=== PATIENT | female | born 1945 | race Caucasian/White ===

== ENCOUNTER → 2018-05-21 15:03 | Outpatient (CLI) | payer OTHER, SELFPAY ==
--- NOTE | 2018-05-21 | DI.MG.S_ITS ---
BILATERAL DIGITAL SCREENING MAMMOGRAM 3D/2D WITH CAD: 05/21/2018 CLINICAL: Routine screening. Comparison is made to exams dated: 06/09/2016 mammogram, 05/21/2015 mammogram, and 01/11/2014 mammogram - [facility]. There are scattered fibroglandular elements in both breasts. Current study was also evaluated with a Computer Aided Detection (CAD) system. No significant masses, calcifications, or other findings are seen in either breast. There has been no significant interval change. IMPRESSION: NEGATIVE There is no mammographic evidence of malignancy. A 1 year screening mammogram is recommended. This exam was interpreted at Station ID: [id number]. NOTE: For mammograms, a report in lay terms will be sent to the patient. Approximately 15% of breast malignancies will not be visualized mammographically. In the management of a palpable breast mass, a negative mammogram must not discourage biopsy of a clinically suspicious lesion. Electronically Signed By: Doris gauthier/pankaj:05/21/2018 17:27:50 letter sent: Normal Exam ACR BI-RADS Category 1: Negative 3341F
== END ==
PROVIDERS: PCP Family Medicine; Visit Provider Family Medicine
DX: Z12.31 Encounter for screening mammogram for malignant neoplasm of breast (principal)
CPT/HCPCS: 77063; 77067

== ENCOUNTER → 2018-07-23 15:12 | Outpatient (CLI) | payer OTHER, SELFPAY ==
[2018-07-23 15:48] LABS: Add Manual Diff / Slide Review NO; Basophils Absolute Auto 0 /uL (0-100); Basophils Percent Auto 0.6 % (0-2); Eosinophils Absolute Auto 100 /uL (0-450); Eosinophils Percent Auto 1.3 % (2-4); Hematocrit 38.5 % (36-46); Hemoglobin 13.3 g/dL (12.0-16.0); Lymphocytes Absolute Auto 1800 /uL (1100-4500); Lymphocytes Percent Auto 34.2 % (25-40); Mean Corpuscular HGB Conc 34.4 % (30-36); Mean Corpuscular Hemoglobin 33.1 PG (26-34); Mean Corpuscular Volume 96.1 fL (80-100); Monocytes Absolute Auto 500 /uL (0-900); Monocytes Percent Auto 9.8 % (3-14); Neutrophils Absolute Auto 2800 /uL (1500-7000); Neutrophils Percent Auto 54.1 % (50-75); Platelet Count 195 X10^3/uL (150-400); Red Blood Cell Count 4.01 X10^6/uL (4.0-5.2); Red Cell Distribution Width 12.4 % (11.6-14.8); White Blood Cell Count 5.2 X10^3/uL (4.5-11.0)
[2018-07-23 17:36] LABS: Alanine Aminotransferase 30 IU/L (9-52); Albumin 4.1 g/dL (3.5-5.0); Albumin Globulin Ratio 1.4 (1.0-2.8); Alkaline Phosphatase 64 U/L (38-126); Aspartate Aminotransferase 21 IU/L (14-36); BUN Creatinine Ratio 16.7 (6-22); Bilirubin Total 0.6 mg/dL (0.2-1.3); Blood Urea Nitrogen 15 mg/dL (7-17); Calcium 9.2 mg/dL (8.4-10.2); Carbon Dioxide 25 mmol/L (22-32); Chloride 104 mmol/L (98-107); Cholesterol 162 mg/dL (140-199); Estimated Glomerular Filt Rate > 60.0 mL/min (>60); Globulin 2.9 g/dL (1.7-4.1); Glucose 105 mg/dL (80-110); HDL Cholesterol 67 mg/dL (40-60); HEMOLYSIS < 15 (0-50); LDL Cholesterol Calculated 75 mg/dL (<100); Potassium 4.1 mmol/L (3.4-5.1); Sodium 140 mmol/L (137-145); Triglycerides 99 mg/dL (35-150)
[2018-07-23 18:06] LABS: Thyroid Stimulating Hormone 3.96 uIU/mL (0.47-4.68)
== END ==
PROVIDERS: PCP Family Medicine; Visit Provider Family Medicine
DX: E03.9 Hypothyroidism, unspecified (principal); E78.5 Hyperlipidemia, unspecified; Z13.820 Encounter for screening for osteoporosis
CPT/HCPCS: 36415; 80053; 80061; 82306; 84443; 85025

== ENCOUNTER → 2018-08-23 14:47 | Outpatient (CLI) | payer OTHER, SELFPAY | PROVIDERS: PCP Family Medicine; Visit Provider Family Medicine | DX: E07.9 Disorder of thyroid, unspecified (principal); Z78.0 Asymptomatic menopausal state | CPT/HCPCS: 77080 ==

== ENCOUNTER → 2020-02-03 16:13 | Outpatient (CLI) | payer MEDICARE, SELFPAY ==
[2020-02-03 17:19] LABS: Add Manual Diff / Slide Review NO; Basophils Absolute Auto 0 /uL (0-100); Basophils Percent Auto 0.6 % (0-2); Eosinophils Absolute Auto 100 /uL (0-450); Eosinophils Percent Auto 1.2 % (2-4); Hematocrit 38.4 % (36-46); Hemoglobin 13.2 g/dL (12.0-16.0); Lymphocytes Absolute Auto 1300 /uL (1100-4500); Mean Corpuscular HGB Conc 34.5 % (30-36); Mean Corpuscular Hemoglobin 33.4 PG (26-34); Monocytes Absolute Auto 400 /uL (0-900); Monocytes Percent Auto 7.9 % (3-14); Neutrophils Absolute Auto 3100 /uL (1500-7000); Neutrophils Percent Auto 63.3 % (50-75); Platelet Count 181 X10^3/uL (150-400); Red Blood Cell Count 3.96 X10^6/uL (4.0-5.2); Red Cell Distribution Width 12.5 % (11.6-14.8); White Blood Cell Count 4.9 X10^3/uL (4.5-11.0)
[2020-02-03 17:45] LABS: Erythrocyte Sedimentation Rate 30 MM/HR (0-20)
[2020-02-03 18:08] LABS: Alanine Aminotransferase 16 IU/L (<35); Albumin 4.1 g/dL (3.5-5.0); Albumin Globulin Ratio 1.4 (1.0-2.8); Alkaline Phosphatase 60 U/L (38-126); Aspartate Aminotransferase 22 IU/L (14-36); BUN Creatinine Ratio 16.1 (6-22); Bilirubin Total 0.6 mg/dL (0.2-1.3); Blood Urea Nitrogen 15 mg/dL (7-17); C-Reactive Protein Quant 0.9 mg/dL (<1.0); Calcium 9.3 mg/dL (8.4-10.2); Carbon Dioxide 32 mmol/L (22-32); Chloride 102 mmol/L (98-107); Estimated Glomerular Filt Rate 58.9 mL/min (>60); Globulin 2.9 g/dL (1.7-4.1); Glucose 118 mg/dL (80-110); HEMOLYSIS < 15 (0-50); Potassium 4.6 mmol/L (3.4-5.1); Sodium 139 mmol/L (137-145)
[2020-02-03 18:34] LABS: TSH w/ Reflex to FT4 4.08 uIU/mL (0.47-4.68); Thyroid Stimulating Hormone 4.01 uIU/mL (0.47-4.68)
== END ==
PROVIDERS: PCP Family Medicine; Referring Provider Family Medicine; Visit Provider Family Medicine
DX: R21 Rash and other nonspecific skin eruption (principal)
CPT/HCPCS: 36415; 80053; 84443; 85025; 85651; 86140

== ENCOUNTER → 2020-04-18 15:07 | Outpatient (CLI) | payer MEDICARE, SELFPAY ==
[2020-04-18 16:53] LABS: Cholesterol 176 mg/dL (140-199); HDL Cholesterol 60 mg/dL (40-60); LDL Cholesterol Calculated 81 mg/dL (<100); Triglycerides 174 mg/dL (35-150)
== END ==
PROVIDERS: PCP Family Medicine; Referring Provider Family Medicine; Visit Provider Family Medicine
DX: E78.2 Mixed hyperlipidemia (principal)
CPT/HCPCS: 36415; 80061

== ENCOUNTER → 2020-05-15 15:18 | Outpatient (CLI) | payer MEDICARE, SELFPAY ==
--- NOTE | 2020-05-15 | DI.MG.S_ITS ---
BILATERAL DIGITAL SCREENING MAMMOGRAM 3D/2D WITH CAD: 05/15/2020 CLINICAL: Routine screening. Comparison is made to exams dated: 05/21/2018 mammogram, 06/09/2016 mammogram, and 05/21/2015 mammogram - [facility]. There are scattered fibroglandular elements in both breasts. Current study was also evaluated with a Computer Aided Detection (CAD) system. No significant masses, calcifications, or other findings are seen in either breast. There has been no significant interval change. IMPRESSION: NEGATIVE There is no mammographic evidence of malignancy. A 1 year screening mammogram is recommended. This exam was interpreted at Station ID: [id number]. NOTE: For mammograms, a report in lay terms will be sent to the patient. Approximately 15% of breast malignancies will not be visualized mammographically. In the management of a palpable breast mass, a negative mammogram must not discourage biopsy of a clinically suspicious lesion. Electronically Signed By: Felisha mayo/pankaj:05/15/2020 15:56:43 letter sent: Normal Exam ACR BI-RADS Category 1: Negative 3341F
== END ==
PROVIDERS: PCP Family Medicine; Referring Provider Family Medicine; Visit Provider Family Medicine
DX: Z12.31 Encounter for screening mammogram for malignant neoplasm of breast (principal)
CPT/HCPCS: 77063; 77067

== ENCOUNTER → 2021-03-28 14:37 | Outpatient (CLI) | payer MEDICARE, SELFPAY ==
[2021-03-28 15:44] LABS: Alanine Aminotransferase 20 IU/L (<35); Albumin 4.2 g/dL (3.5-5.0); Albumin Globulin Ratio 1.4 (1.0-2.8); Alkaline Phosphatase 60 U/L (38-126); Aspartate Aminotransferase 25 IU/L (14-36); BUN Creatinine Ratio 10.3 (6-22); Bilirubin Total 0.7 mg/dL (0.2-1.3); Blood Urea Nitrogen 9 mg/dL (7-17); Carbon Dioxide 32 mmol/L (22-32); Chloride 104 mmol/L (98-107); Cholesterol 192 mg/dL (140-199); Estimated Glomerular Filt Rate > 60.0 mL/min (>60); Globulin 3.1 g/dL (1.7-4.1); Glucose 103 mg/dL (80-110); HDL Cholesterol 66 mg/dL (40-60); HEMOLYSIS < 15 (0-50); LDL Cholesterol Calculated 94 mg/dL (<100); Potassium 4.3 mmol/L (3.4-5.1); Sodium 141 mmol/L (137-145); Total Protein 7.3 g/dL (6.3-8.2); Triglycerides 160 mg/dL (35-150)
[2021-03-28 17:01] LABS: Microalbumin Urine Random 1.2 mg/dL (0-1.6)
[2021-03-28 17:04] LABS: Microalbumi Creatinin Ratio Ur 7.5 ug/mg CR (<30)
[2021-03-28 17:34] LABS: TSH w/ Reflex to FT4 4.99 uIU/mL (0.47-4.68)
== END ==
PROVIDERS: Referring Provider Family Medicine; Visit Provider Family Medicine
DX: E03.9 Hypothyroidism, unspecified (principal); E78.2 Mixed hyperlipidemia
CPT/HCPCS: 36415; 80053; 80061; 82043; 82570; 84439; 84443

== ENCOUNTER → 2021-07-03 15:57 | Outpatient (CLI) | payer MEDICARE, SELFPAY ==
--- NOTE | 2021-07-03 16:01 | DI.MG.S_ITS ---
BILATERAL DIGITAL SCREENING MAMMOGRAM 3D/2D WITH CAD: 07/03/2021 CLINICAL: Routine screening. Comparison is made to exams dated: 05/15/2020 mammogram, 05/21/2018 mammogram, and 06/09/2016 mammogram - [facility]. There are scattered fibroglandular elements in both breasts. Current study was also evaluated with a Computer Aided Detection (CAD) system. No significant masses, calcifications, or other findings are seen in either breast. There has been no significant interval change. IMPRESSION: NEGATIVE There is no mammographic evidence of malignancy. A 1 year screening mammogram is recommended. This exam was interpreted at Station ID: [id number]. NOTE: For mammograms, a report in lay terms will be sent to the patient. Approximately 15% of breast malignancies will not be visualized mammographically. In the management of a palpable breast mass, a negative mammogram must not discourage biopsy of a clinically suspicious lesion. Electronically Signed By: Jorge Alberto Gonzalez M.D., jr/pankaj:07/04/2021 10:58:16 letter sent: Normal Exam ACR BI-RADS Category 1: Negative 3341F
== END ==
PROVIDERS: PCP Family Medicine; Referring Provider Family Medicine; Visit Provider Family Medicine
DX: Z12.31 Encounter for screening mammogram for malignant neoplasm of breast (principal)
CPT/HCPCS: 77063; 77067

== ENCOUNTER → 2021-12-04 16:12 | Outpatient (CLI) | payer MEDICARE, SELFPAY ==
[2021-12-04 18:01] LABS: Alanine Aminotransferase 17 IU/L (<35); Albumin Globulin Ratio 1.2 (1.0-2.8); Alkaline Phosphatase 58 U/L (38-126); Aspartate Aminotransferase 30 IU/L (14-36); BUN Creatinine Ratio 12.4 (6-22); Bilirubin Total 0.6 mg/dL (0.2-1.3); Blood Urea Nitrogen 12 mg/dL (7-17); Calcium 8.9 mg/dL (8.4-10.2); Carbon Dioxide 27 mmol/L (22-32); Chloride 104 mmol/L (98-107); Estimated Glomerular Filt Rate > 60 mL/min (>60); Globulin 3.4 g/dL (1.7-4.1); Glucose 106 mg/dL (80-110); HEMOLYSIS < 15 (0-50); Potassium 4.7 mmol/L (3.4-5.1); Sodium 141 mmol/L (137-145); Total Protein 7.4 g/dL (6.3-8.2)
[2021-12-04 18:06] LABS: Add Manual Diff / Slide Review NO; Basophils Absolute Auto 0 /uL (0-100); Basophils Percent Auto 0.5 % (0-2); Eosinophils Absolute Auto 100 /uL (0-450); Eosinophils Percent Auto 2.3 % (2-4); Hematocrit 36.1 % (36-46); Hemoglobin 12.4 g/dL (12.0-16.0); Lymphocytes Absolute Auto 800 /uL (1100-4500); Mean Corpuscular HGB Conc 34.4 % (30-36); Mean Corpuscular Hemoglobin 32.2 PG (26-34); Mean Corpuscular Volume 93.6 fL (80-100); Monocytes Absolute Auto 600 /uL (0-900); Monocytes Percent Auto 10.9 % (3-14); Neutrophils Absolute Auto 3900 /uL (1500-7000); Neutrophils Percent Auto 71.3 % (50-75); Platelet Count 238 X10^3/uL (150-400); Red Blood Cell Count 3.86 X10^6/uL (4.0-5.2); Red Cell Distribution Width 12.4 % (11.6-14.8); White Blood Cell Count 5.4 X10^3/uL (4.5-11.0)
[2021-12-04 18:08] LABS: NT-proBNP (BNP-Adult 18+) 201 pg/mL (<450)
[2021-12-04 19:00] LABS: TSH w/ Reflex to FT4 2.83 uIU/mL (0.47-4.68)
[2021-12-04 20:33] LABS: Bilirubin Urine UA NEGATIVE (NEGATIVE); Color Urine UA YELLOW; Glucose Urine UA NEGATIVE (Negative); Ketones Urine UA NEGATIVE (NEGATIVE); Leukocyte Esterase Urine UA 2+ (NEGATIVE); Nitrite Urine UA NEGATIVE (Negative); Occult Blood Urine UA TRACE-LYSED (Negative); Protein Urine UA NEGATIVE (Negative); Urobilinogen Urine UA 0.2 E.U./dL (0.2)
[2021-12-04 20:34] LABS: Appearance Urine UA Slightly Cloudy
[2021-12-04 20:43] LABS: RBC Urine 0-1/HPF (0-5/HPF); Squamous Epithelial Cell Urine 5-10 /HPF (0-5/HPF); WBC Urine 10-30/HPF (0-5/HPF)
[2021-12-04 20:44] LABS: Amorphous Sediment Urine 1+; Bacteria Urine Moderate (10-30); Culture Indicated Urine Specimen Cultured; Mucus Urine 1+ (Negative)
== END ==
PROVIDERS: PCP Family Medicine; Referring Provider Family Medicine; Visit Provider Family Medicine
DX: E03.9 Hypothyroidism, unspecified (principal); R06.00 Dyspnea, unspecified; E78.2 Mixed hyperlipidemia
CPT/HCPCS: 36415; 80053; 81001; 83880; 84443; 85025; 87077; 87086; 87186

== ENCOUNTER → 2021-12-10 14:43 | Outpatient (CLI) | payer MEDICARE, SELFPAY ==
--- NOTE | 2021-12-10 14:45 | DI.RAD.S_ITS ---
PROCEDURE: XR CHEST 2V INDICATIONS: dyspnea on exertion TECHNIQUE: 2 views of the chest were acquired. COMPARISON: None. FINDINGS: Surgical changes and devices: None. Lungs and pleura: Bilateral hazy opacity. No pleural effusions or pneumothorax. Mediastinum: Mediastinal contours are normal. Heart size is normal. Bones and chest wall: No suspicious bony abnormalities. Soft tissues appear unremarkable. IMPRESSION: Bilateral hazy opacity. This could represent pulmonary edema or infectious/inflammatory etiology. Dictated by: Jonnathan Pereyra M.D. on 12/10/2021 at 17:00 Approved by: Jonnathan Pereyra M.D. on 12/10/2021 at 17:02
== END ==
PROVIDERS: PCP Family Medicine; Referring Provider Family Medicine; Visit Provider Family Medicine
DX: E03.9 Hypothyroidism, unspecified (principal); E78.2 Mixed hyperlipidemia; R06.00 Dyspnea, unspecified
CPT/HCPCS: 71046

== ENCOUNTER → 2021-12-24 15:18 | Outpatient (CLI) | payer MEDICARE, SELFPAY ==
--- NOTE | 2021-12-24 15:20 | DI.RAD.S_ITS ---
PROCEDURE: XR CHEST 2V INDICATIONS: hazy opacity TECHNIQUE: 2 views of the chest were acquired. COMPARISON: [facility], , XR CHEST 2V, 12/10/2021, 14:56. FINDINGS: Surgical changes and devices: None. Lungs and pleura: Patchy areas of increased interstitial and airspace opacity in both lungs. No obvious lobar or regional predilection. No chanda consolidation. No visible pleural effusion or findings of pneumothorax. Mediastinum: Mediastinal contours are normal. Heart size is at the upper limits of normal. Bones and chest wall: No suspicious bony abnormalities. Soft tissues appear unremarkable. IMPRESSION: Hazy opacities in both lungs have not significantly changed from the prior study. This could reflect interstitial edema or another interstitial process including and idiopathic interstitial pneumonitis. If there is no additional clinical evidence to support a diagnosis of cardiogenic pulmonary edema (elevated BNP or low cardiac output), then high-resolution CT of the chest should be considered along with further pulmonology workup. Dictated by: Jorge Alberto Gonzalez M.D. on 12/24/2021 at 15:46 Approved by: Jorge Alberto Gonzalez M.D. on 12/24/2021 at 15:48
== END ==
PROVIDERS: PCP Family Medicine; Referring Provider Family Medicine; Visit Provider Family Medicine
DX: R06.00 Dyspnea, unspecified (principal); R91.8 Other nonspecific abnormal finding of lung field
CPT/HCPCS: 71046

== ENCOUNTER 2021-12-25 16:37 | Emergency (ER) | payer MEDICARE, SELFPAY ==
[2021-12-25 16:44] VITALS: BP 118/69; PULSE 98; RESP 20; TEMP 36.4; O2SAT 95; BMI 29.7
[2021-12-25 18:22] LABS: COVID19 -Nasal RAPID POSITIVE (Negative)
--- NOTE | 2021-12-25 18:28 | ED.SOB ---
HPI - SOB/Dyspnea <Kristin Coffey, [facility] - Last Filed: 12/25/21 19:11> General Chief Complaint: Shortness of Breath/Dyspnea Stated Complaint: SOB COVID+ LIGHT HEADED Time Seen by Provider: 12/25/21 17:21 Source: patient Mode of arrival: Ambulatory History of Present Illness HPI Narrative: This is a 76-year-old female who presents to the emergency department with her after Paxlovid treatment for COVID infection and reports that she still feels short of breath with exertion, and still has fatigue. Patient finished 5 day treatment of Paxlovid on 12/22/21 and she states that her cough and sore throat improved while she was on it. She brought her in for evaluation for his COVID illness today and she checked in as well for her ongoing symptoms. States that she has used Tylenol at night for fever or pain and this has helped her sleep. She denies any nausea vomiting, diarrhea, wheezing, chest pain, difficulty breathing, or other symptom. Related Data Home Medications Medication Instructions Recorded Confirmed ASPIRIN (Aspirin) 81 mg PO Q DAY ##0 08/07/11 05/10/21 Previous Rx's Medication Instructions Recorded calcium carbonate 600 mg calcium 600 mg PO BID #180 tabs 03/28/20 (1,500 mg) tablet (Calcium) multivitamin 1 tab PO DAILY #90 tabs 03/28/20 levothyroxine 112 mcg tablet 112 mcg PO DAILY #90 tabs 03/21/21 lovastatin 40 mg tablet See Rx Instructions .Route 08/22/21 .COMPLEX #180 tabs nirmatrelvir 300 mg (150 mg x See Rx Instructions PO .COMPLEX 12/17/21 2)-ritonavir 100 mg tablet (EUA) #30 tabs (Paxlovid 300 mg () benzocaine 15 mg-menthol 3.6 mg 1 nicolás mucous membrane Q2-4H PRN 12/25/21 lozenges (Cepacol Sore Throat sore throat #16 ea (benzocaine-menthol)) guaifenesin 200 mg/5 mL oral liquid 400 mg (10 mL) PO Q6H PRN cough 12/25/21 #118 mL Allergies Allergy/AdvReac Type Severity Reaction Status Date / Time prednisone Allergy Intermediate rash, ring Verified 05/10/21 15:29 around ankles Review of Systems <KAROL Patel - Last Filed: 12/25/21 19:11> Review of Systems Narrative: General: denies fever, chills, malaise, sweats, endorses having fatigue Head/Neck: denies headache, neck pain, dizziness Eyes: denies visual changes, eye pain Cardio: denies chest pain, palpitations, edema Respiratory: Endorses shortness of breath with exertion, states that her cough and sore throat have improved and are mostly gone, denies orthopnea GI: denies abdominal pain, nausea, vomiting, or diarrhea : denies dysuria, hematuria, urinary retention, frequency or incontinence MSK: denies joint pain, muscle weakness Skin: denies rash, itching, skin lesions or other Neuro: denies numbness, tingling Patient History <KAROL Patel - Last Filed: 12/25/21 19:11> Medical History Dyspnea on exertion Social History Smoking Status: Never smoker alcohol intake: current (2 glasses wine per week ) substance use type: does not use Smoking Status: Never smoker Substance Use Type: does not use Exam <KAROL Patel - Last Filed: 12/25/21 19:11> Narrative Exam Narrative: Independently reviewed vitals signs and nursing notes. General: cooperative, comfortable, in no acute distress, well groomed Head: atraumatic, symmetrical facial expressions Neck: supple Eyes: equal round and reactive, EOMI, conjunctiva normal Nose: nares patent, no rhinorrhea Mouth/Throat: moist mucus membranes Cardiovascular: regular rate and rhythm, no peripheral edema, warm extremities Respiratory: normal effort, able to speak in complete sentences, no audible wheezing, stridor, or rales. No retractions or tachypnea. GI: abdomen soft, nontender to palpation, nondistended, no masses, no exquisite tenderness with exam, without guarding or rebound. MSK: moves all extremities, neurovascularly intact, no weakness, normal tone Skin: brisk capillary refill, no rash, no erythema Neuro: normal speech and cognition, A&O x3 Psych: mental status is grossly normal, congruent mood, normal affect, pleasant and cooperative Initial Vital Signs Initial Vital Signs: Vital Signs Temperature 97.5 F L 12/25/21 16:44 Pulse Rate 98 H 12/25/21 16:44 Respiratory Rate 20 12/25/21 16:44 Blood Pressure 118/69 12/25/21 16:44 Pulse Oximetry 95 12/25/21 16:44 Oxygen Delivery Method 12/25/21 16:44 <Noam Rodriguez DO - Last Filed: 12/25/21 19:48> Initial Vital Signs Initial Vital Signs: Vital Signs Temperature 97.5 F L 12/25/21 16:44 Pulse Rate 98 H 12/25/21 16:44 Respiratory Rate 20 12/25/21 16:44 Blood Pressure 118/69 12/25/21 16:44 Pulse Oximetry 95 12/25/21 16:44 Oxygen Delivery Method 12/25/21 16:44 Course <KAROL Patel - Last Filed: 12/25/21 19:11> Orders Ordered: ED Orders 12/25/21 18:09 COVID19 -Nasal RAPID/Pre-Proc Stat Vital Signs Vital signs: Vital Signs - 8 hr 12/25/21 16:44 12/25/21 19:15 Temperature 97.5 F L Pulse Rate 98 H 81 Respiratory Rate 20 22 Blood Pressure 118/69 Pulse Oximetry 95 97 Oxygen Delivery Method Room Air Room Air <Noam Rodriguez DO - Last Filed: 12/25/21 19:48> Orders Ordered: ED Orders 12/25/21 18:09 COVID19 -Nasal RAPID/Pre-Proc Stat Vital Signs Vital signs: Vital Signs - 8 hr 12/25/21 16:44 12/25/21 19:15 Temperature 97.5 F L Pulse Rate 98 H 81 Respiratory Rate 20 22 Blood Pressure 118/69 Pulse Oximetry 95 97 Oxygen Delivery Method Room Air Room Air MDM - SOB/Dyspnea <KAROL Patel - Last Filed: 12/25/21 19:11> Lab Data Labs: Lab Results 12/25/21 Range/Units 18:09 SARS-CoV-2 (PCR) Positive H (Negative) Imaging Data Chest x-ray: Radiologist's Impression: PROCEDURE:? XR CHEST 2V ? INDICATIONS:? hazy opacity ? TECHNIQUE:? 2 views of the chest were acquired.? ? COMPARISON:? [facility], CR, XR CHEST 2V, 12/10/2021, 14:56. ? FINDINGS:? ? Surgical changes and devices:? None.? ? Lungs and pleura: ? Patchy areas of increased interstitial and airspace opacity in both lungs.? No obvious lobar or regional predilection.? No chanda consolidation.? No visible pleural effusion or findings of pneumothorax. ? Mediastinum:? Mediastinal contours are normal.? Heart size is at the upper limits of normal. ? Bones and chest wall:? No suspicious bony abnormalities.? Soft tissues appear unremarkable.? ? IMPRESSION:? Hazy opacities in both lungs have not significantly changed from the prior study.? This could reflect interstitial edema or another interstitial process including and idiopathic interstitial pneumonitis.? If there is no additional clinical evidence to support a diagnosis of cardiogenic pulmonary edema (elevated BNP or low cardiac output), then high-resolution CT of the chest should be considered along with further pulmonology workup.? ? Dictated by: Jorge Alberto Gonzalez M.D. on 12/24/2021 at 15:46 ? ? Approved by: Jorge Alberto Gonzalez M.D. on 12/24/2021 at 15:48 ? MDM Narrative Medical decision making narrative: This is a 76-year-old female who is COVID positive and on day seven of her symptoms who presents to the emergency department status post Paxlovid treatment for covid complaining of fatigue and ongoing shortness of breath with exertion. She finished treatment on 12/22/2021, her COVID PCR is positive today for COVID, x-ray of her chest obtained yesterday shows hazy opacities in bilateral lungs but were unchanged from prior study. Patient is nontoxic appearing, breath sounds are clear throughout all padron, she does not have tachypnea, hypoxia, a productive cough, fever, increased work of breathing or other concerning respiratory symptom at this time. She does not have any respiratory distress, dehydration, or focal exam to suggest secondary bacterial infection. Discussed CDC guidelines for quarantine, mask wearing, physical distancing, and infection prevention measures such as frequent handwashing. Discussed supportive treatments: Tylenol/Motrin as needed for pain/fever. OTC decongestant medications and/or antihistamines for symptomatic relief. Maintain adequate fluid intake. Follow-up with PCP as directed. Return to clinic/ER instructions discussed for new, not improving, or worsening symptoms. All questions answered. <Noam Rodriguez, DO - Last Filed: 12/25/21 19:48> Lab Data Labs: Lab Results 12/25/21 Range/Units 18:09 SARS-CoV-2 (PCR) Positive H (Negative) Discharge Plan Departure Patient Disposition: Home Clinical Impression: COVID-19 Instructions: DI for COVID-19 (Suspected or Confirmed ), How to Care for Someone with COVID-19 Activity Restrictions/Additional Instructions: *You have been diagnosed with COVID-19. This is likely the tail end of your virus since you have completed treatment. Treatment should reduce the course and reduce the severity of your symptoms. Because it is still positive today, please continue to treat your symptoms. Take Tylenol for pain or fever, use throat lozenges for sore throat and coughing, and try to stay hydrated. I am sorry for your symptoms, this should start to get better soon. Please practice good pulmonary hygiene by taking deep breaths frequently throughout day, clearing your secretions, resting when you need to, and quarantine in from other nonstick people. Please return to the emergency department if you have any worsening shortness of breath, or other new problems of concern. *What to do: *Please continue to take your regular medications as directed. [x ] New medication prescriptions sent to your pharmacy: [[facility] ] [ ] New medication written as a paper prescription [ ] No new medications given *Please follow up with your primary care provider in 2-3 days, call for an appointment. Let them know you were seen in the Emergency Department and that we asked that you be seen for follow-up. We will electronically transmit a record of today's note if your PCP is in our system *If you do not have a primary care provider please contact [phone] to establish care with one of the [facility] primary care providers. *Return to Emergency Department if you should have any new, worsening or concerning symptoms, such as [fever greater than 101F, chills, worsening pain, persistent vomiting or other bothersome symptoms] Prescriptions: New Cepacol Sore Throat (raghavendra-men) 15-3.6 mg lozenge 1 nicolás mucous membrane Q2-4H PRN (Reason: sore throat) Qty: 16 0RF guaifenesin 200 mg/5 mL liquid 400 mg PO Q6H PRN (Reason: cough) Qty: 118 0RF No Action ASPIRIN (Aspirin) 81 mg PO Q DAY Qty: 0 lovastatin 40 mg tablet See Rx Instructions .ROUTE .COMPLEX Qty: 180 3RF Dose Instruction: TAKE 2 TABLETS BY MOUTH AT BEDTIME Rx Instructions: TAKE 2 TABLETS BY MOUTH AT BEDTIME Paxlovid (EUA) 150 mg x 2- 100 mg tablet See Rx Instructions PO .COMPLEX Qty: 30 0RF Rx Instructions: take TWO 150 mg tablets of nirmatrelvir with ONE 100 mg tablet of ritonavir twice daily for 5 days PO multivitamin Tablet 1 tab PO DAILY Qty: 90 0RF calcium carbonate [Calcium 600] 600 mg calcium (1,500 mg) tablet 600 mg PO BID Qty: 180 0RF levothyroxine 112 mcg tablet 112 mcg PO DAILY Qty: 90 3RF Referrals: Chang Holbrook MD [Primary Care Provider] - Visit Report Forms: Patient Portal/API <Noam Rodriguez, DO - Last Filed: 12/25/21 19:48> Cosign ED Attending Cosignature Attestation: Dr Rodriguez Co-Sign Statement: I was available for consultation during this patient's emergency department visit. This chart is signed by myself for administrative purposes only. I did not have direct contact with this patient during this visit. They were seen independently by the APC.
[2021-12-25 19:15] VITALS: PULSE 81; RESP 22; O2SAT 97
== END 2021-12-25 19:16 | disposition home or self-care (01) ==
PROVIDERS: Emergency Provider Nurse Practitioner Critical Care Medicine; PCP Family Medicine
DX: U07.1 COVID-19 (principal)
CPT/HCPCS: 87635; 99281; 99282; C9803

== ENCOUNTER → 2022-01-07 16:41 | Outpatient (CLI) | payer MEDICARE, SELFPAY ==
--- NOTE | 2022-01-07 16:45 | DI.RAD.S_ITS ---
PROCEDURE: XR FOOT RT MIN 3V INDICATIONS: R great toe pain, fall, injury TECHNIQUE: 3 views of the foot were acquired. COMPARISON: None. FINDINGS: Bones: Nondisplaced fracture involving the medial margin of the base of the 1st proximal phalange which extends into the MTP joint. Calcaneal bone spurs. Soft tissues: No tibiotalar joint effusion. Achilles tendon appears normal. IMPRESSION: Nondisplaced, intra-articular 1st proximal phalange fracture. Dictated by: June Rhodes MD, PhD on 01/07/2022 at 17:18 Approved by: June Rhodes MD, PhD on 01/07/2022 at 17:19
== END ==
PROVIDERS: PCP Family Medicine; Referring Provider Physician Assistant; Visit Provider Physician Assistant
DX: S92.414A Nondisplaced fracture of proximal phalanx of right great toe, initial encounter for closed fracture (principal); W19.XXXA Unspecified fall, initial encounter
CPT/HCPCS: 73630

== ENCOUNTER → 2022-06-19 14:22 | Outpatient (CLI) | payer MEDICARE, SELFPAY ==
[2022-06-19 15:51] LABS: Alanine Aminotransferase 20 IU/L (<35); Albumin 4.1 g/dL (3.5-5.0); Albumin Globulin Ratio 1.3 (1.0-2.8); Alkaline Phosphatase 62 U/L (38-126); Aspartate Aminotransferase 22 IU/L (14-36); BUN Creatinine Ratio 17.9 (6-22); Bilirubin Total 0.5 mg/dL (0.2-1.3); Blood Urea Nitrogen 19 mg/dL (7-17); Calcium 9.1 mg/dL (8.4-10.2); Carbon Dioxide 31 mmol/L (22-32); Chloride 100 mmol/L (98-107); Cholesterol 182 mg/dL (140-199); Estimated Glomerular Filt Rate 54 mL/min (>60); Globulin 3.2 g/dL (1.7-4.1); Glucose 100 mg/dL (80-110); HDL Cholesterol 60 mg/dL (40-60); HEMOLYSIS < 15 (0-50); LDL Cholesterol Calculated 102 mg/dL (<100); Potassium 4.1 mmol/L (3.4-5.1); Sodium 139 mmol/L (137-145); Total Protein 7.3 g/dL (6.3-8.2); Triglycerides 102 mg/dL (35-150)
[2022-06-19 16:32] LABS: Microalbumin Urine Random 2.9 mg/dL (0-1.6)
[2022-06-19 17:10] LABS: Creatinine Urine Random 386.7 mg/dL; Microalbumi Creatinin Ratio Ur 7.4 ug/mg CR (<30)
== END ==
PROVIDERS: PCP Family Medicine; Referring Provider Family Medicine; Visit Provider Family Medicine
DX: E78.2 Mixed hyperlipidemia (principal); E03.9 Hypothyroidism, unspecified; U07.1 COVID-19
CPT/HCPCS: 36415; 80053; 80061; 82043; 82570

== ENCOUNTER → 2022-06-26 16:46 | Outpatient (CLI) | payer MEDICARE, SELFPAY ==
[2022-06-26 18:37] LABS: Appearance Urine UA SL CLOUDY; Bilirubin Urine UA NEGATIVE (NEGATIVE); Color Urine UA YELLOW; Glucose Urine UA NEGATIVE (Negative); Ketones Urine UA NEGATIVE (NEGATIVE); Leukocyte Esterase Urine UA 2+ (NEGATIVE); Nitrite Urine UA NEGATIVE (Negative); Occult Blood Urine UA 1+ (Negative); Protein Urine UA TRACE (Negative); Specific Gravity Urine UA >=1.030 (1.000-1.035); Urobilinogen Urine UA 0.2 E.U./dL (0.2)
[2022-06-26 19:00] LABS: Amorphous Sediment Urine 1+; Bacteria Urine Moderate (10-30); Culture Indicated Urine Specimen Cultured; Mucus Urine 1+ (Negative); RBC Urine 1-5/HPF (0-5/HPF); Squamous Epithelial Cell Urine 10-30 /HPF (0-5/HPF); WBC Urine 10-30/HPF (0-5/HPF)
== END ==
PROVIDERS: PCP Family Medicine; Referring Provider Family Medicine; Visit Provider Family Medicine
DX: R30.0 Dysuria (principal)
CPT/HCPCS: 81001; 87077; 87086; 87147; 87186

== ENCOUNTER → 2022-09-10 15:45 | Outpatient (CLI) | payer MEDICARE, SELFPAY ==
--- NOTE | 2022-09-10 15:51 | DI.MG.S_ITS ---
BILATERAL DIGITAL SCREENING MAMMOGRAM 3D/2D WITH CAD: 09/10/2022 CLINICAL: Routine screening. Comparison is made to exams dated: 07/03/2021 mammogram, 05/15/2020 mammogram, and 05/21/2018 mammogram - [facility]. There are scattered areas of fibroglandular density in both breasts (category b / 25%-50% glandular tissue). Current study was also evaluated with a Computer Aided Detection (CAD) system. No significant masses, calcifications, or other findings are seen in either breast. There has been no significant interval change. IMPRESSION: NEGATIVE There is no mammographic evidence of malignancy. A 1 year screening mammogram is recommended. Based on the Tyrer Cuzick model (a risk assessment model) the patient's lifetime risk is 4.6% and her 10 year risk is 0.0%. According to the ACR, ACS, and NCCN guidelines, an annual breast MRI exam along with mammogram is recommended if the patient's lifetime risk is 20% or greater. This exam was interpreted at Station ID: [id number]. NOTE: For mammograms, a report in lay terms will be sent to the patient. Approximately 15% of breast malignancies will not be visualized mammographically. In the management of a palpable breast mass, a negative mammogram must not discourage biopsy of a clinically suspicious lesion. Electronically Signed By: Jorge Alberto Gonzalez M.D., jr/pankaj:09/11/2022 14:40:43 letter sent: Normal Exam ACR BI-RADS Category 1: Negative 3341F
== END ==
PROVIDERS: PCP Family Medicine; Referring Provider Family Medicine; Visit Provider Family Medicine
DX: Z12.31 Encounter for screening mammogram for malignant neoplasm of breast (principal)
CPT/HCPCS: 77063; 77067

== ENCOUNTER → 2022-10-15 13:36 | Outpatient (CLI) | payer MEDICARE, SELFPAY ==
--- NOTE | 2022-10-15 13:39 | DI.RAD.S_ITS ---
PROCEDURE: XR KNEE RT 3V INDICATIONS: bilateral knee pain TECHNIQUE: 3 views of the knee were acquired. COMPARISON: [facility], , KNEE 3V RIGHT, 11/29/2012, 16:18. FINDINGS: Bones: No fractures or dislocations. No suspicious bony lesions. Progressive degenerative arthritis of the right knee. There are tricompartment osteophytes. There is progression of lateral compartment degenerative change with moderate to severe lateral compartment joint space loss. Soft tissues: No joint effusion. No suspicious soft tissue calcifications. IMPRESSION: Interval progression of degenerative arthritis of the right knee. Dictated by: Vignesh Cantrell M.D. on 10/15/2022 at 15:16 Approved by: Vignesh Cantrell M.D. on 10/15/2022 at 15:17
--- NOTE | 2022-10-15 13:39 | DI.RAD.S_ITS ---
PROCEDURE: XR KNEE LT 3V INDICATIONS: bilateral knee pain TECHNIQUE: 3 views of the knee were acquired. COMPARISON: [facility], , KNEE 3V RIGHT, 11/29/2012, 16:18. FINDINGS: Bones: No fractures or dislocations. No suspicious bony lesions. Mild interval progression of degenerative arthritis with more prominent medial compartment osteophytes. Soft tissues: No joint effusion. No suspicious soft tissue calcifications. IMPRESSION: Mild interval progression of degenerative arthritis of the left knee. Dictated by: Vignesh Cantrell M.D. on 10/15/2022 at 15:15 Approved by: Vignesh Cantrell M.D. on 10/15/2022 at 15:16
== END ==
PROVIDERS: PCP Family Medicine; Referring Provider Family Medicine; Visit Provider Family Medicine
DX: M17.0 Bilateral primary osteoarthritis of knee (principal); M25.561 Pain in right knee; M25.562 Pain in left knee
CPT/HCPCS: 73562

== ENCOUNTER → 2023-03-12 15:29 | Outpatient (CLI) | payer MEDICARE, SELFPAY ==
[2023-03-12 16:58] LABS: Add Manual Diff / Slide Review NO; Basophils Absolute Auto 0 /uL (0-100); Basophils Percent Auto 0.5 % (0-2); Eosinophils Absolute Auto 100 /uL (0-450); Eosinophils Percent Auto 1.1 % (2-4); Hematocrit 37.7 % (36-46); Lymphocytes Absolute Auto 1400 /uL (1100-4500); Lymphocytes Percent Auto 23.9 % (25-40); Mean Corpuscular HGB Conc 34.4 % (30-36); Mean Corpuscular Hemoglobin 32.9 PG (26-34); Mean Corpuscular Volume 95.8 fL (80-100); Monocytes Absolute Auto 500 /uL (0-900); Monocytes Percent Auto 8.5 % (3-14); Neutrophils Absolute Auto 4000 /uL (1500-7000); Platelet Count 190 X10^3/uL (150-400); Red Blood Cell Count 3.94 X10^6/uL (4.0-5.2); Red Cell Distribution Width 13.2 % (11.6-14.8)
[2023-03-12 17:23] LABS: Alanine Aminotransferase 23 IU/L (<35); Albumin 4.1 g/dL (3.5-5.0); Albumin Globulin Ratio 1.1 (1.0-2.8); Alkaline Phosphatase 56 U/L (38-126); Aspartate Aminotransferase 29 IU/L (14-36); BUN Creatinine Ratio 12.9 (6-22); Bilirubin Total 0.6 mg/dL (0.2-1.3); Blood Urea Nitrogen 12 mg/dL (7-17); Calcium 8.9 mg/dL (8.4-10.2); Carbon Dioxide 27 mmol/L (22-32); Chloride 102 mmol/L (98-107); Estimated Glomerular Filt Rate > 60 mL/min (>60); Globulin 3.6 g/dL (1.7-4.1); Glucose 105 mg/dL (80-110); HEMOLYSIS 20 (0-50); Potassium 4.2 mmol/L (3.4-5.1); Sodium 138 mmol/L (137-145); Total Protein 7.7 g/dL (6.3-8.2)
[2023-03-12 17:51] LABS: TSH w/ Reflex to FT4 4.76 uIU/mL (0.47-4.68)
[2023-03-12 23:36] LABS: Free T4, Direct Thyroxine 1.24 ng/dL (0.78-2.19)
== END ==
PROVIDERS: PCP Family Medicine; Referring Provider Family Medicine; Visit Provider Family Medicine
DX: E03.9 Hypothyroidism, unspecified (principal); E78.2 Mixed hyperlipidemia; M25.561 Pain in right knee; M25.562 Pain in left knee
CPT/HCPCS: 36415; 80053; 84439; 84443; 85025

== ENCOUNTER → 2023-10-05 15:39 | Outpatient (CLI) | payer MEDICARE, SELFPAY ==
--- NOTE | 2023-10-05 | DI.MG.S_ITS ---
BILATERAL DIGITAL SCREENING MAMMOGRAM 3D/2D WITH CAD: 10/05/2023 CLINICAL: Routine screening. Comparison is made to exams dated: 09/10/2022 mammogram, 07/03/2021 mammogram, and 05/15/2020 mammogram - [facility]. There are scattered areas of fibroglandular density in both breasts (category b / 25%-50% glandular tissue). Current study was also evaluated with a Computer Aided Detection (CAD) system. No significant masses, calcifications, or other findings are seen in either breast. There has been no significant interval change. IMPRESSION: NEGATIVE There is no mammographic evidence of malignancy. A 1 year screening mammogram is recommended. Based on the Tyrer Cuzick model (a risk assessment model) the patient's lifetime risk is 4.1% and her 10 year risk is 0.0%. According to the ACR, ACS, and NCCN guidelines, an annual breast MRI exam along with mammogram is recommended if the patient's lifetime risk is 20% or greater. This exam was interpreted at Station ID: [id number]. NOTE: For mammograms, a report in lay terms will be sent to the patient. Approximately 15% of breast malignancies will not be visualized mammographically. In the management of a palpable breast mass, a negative mammogram must not discourage biopsy of a clinically suspicious lesion. Electronically Signed By: Brien van/pankaj:10/06/2023 17:28:08 letter sent: Normal Exam ACR BI-RADS Category 1: Negative 3341F
== END ==
PROVIDERS: PCP Family Medicine; Referring Provider Family Medicine; Visit Provider Family Medicine
DX: Z12.31 Encounter for screening mammogram for malignant neoplasm of breast (principal); R92.323 Mammographic fibroglandular density, bilateral breasts
CPT/HCPCS: 77063; 77067

== ENCOUNTER → 2024-07-20 13:43 | Outpatient (CLI) | payer MEDICARE, SELFPAY | PROVIDERS: PCP Family Medicine; Referring Provider Family Medicine; Visit Provider Family Medicine | DX: R00.2 Palpitations (principal) | CPT/HCPCS: 93242; 93244 ==

== ENCOUNTER 2024-07-25 18:35 | Emergency (ER) | payer MEDICARE, SELFPAY ==
[2024-07-25] VITALS (14 sets, daily range): BP systolic 123–181; BP diastolic 60–97; PULSE 66–93; RESP 15–23; TEMP 36.6; O2SAT 94–98; BMI 30.4
--- NOTE | 2024-07-25 18:43 | DI.RAD.S_ITS ---
PROCEDURE: XR CHEST 1V INDICATIONS: Chest pain TECHNIQUE: One view of the chest was acquired. COMPARISON: [facility], , XR CHEST 2V, 12/24/2021, 15:24. FINDINGS: Surgical changes and devices: Battery like device projects over the left lateral chest. Lungs and pleura: Mild diffuse thickening of the interstitial markings. No focal consolidation, effusion, or pneumothorax. Mediastinum: Mild cardiomegaly. Normal aortic contour. No central venous congestion. Bones and chest wall: No suspicious bony lesions. Overlying soft tissues appear unremarkable. IMPRESSION: Diffuse interstitial thickening may indicate chronic pulmonary edema or interstitial pneumonitis. Mild cardiomegaly, slightly increased compared to the prior exam. Dictated by: Felisha Palacios M.D. on 07/25/2024 at 19:54 Approved by: Felisha Palacios M.D. on 07/25/2024 at 19:55
--- NOTE | 2024-07-25 18:43 | EKG_ITS ---
[facility] [address] [place] [address] Test Date: 2024-07-25 Pat Name: Alicia Parsons Department: [facility] Room: Gender: Female Headline Writer: : 1945 Requested By: Order Number: [id number] Reading MD: Dwayne Liu MD Measurements Intervals [place] Rate: 74 P: 72 SD: 130 QRS: 63 QRSD: 88 T: 63 QT: 394 QTc: 437 Interpretive Statements Normal sinus rhythm Low voltage QRS Nonspecific ST abnormality Electronically Signed On 07-26-2024 6:43:12 PST by Dwayne Liu MD
[2024-07-25 19:47] LABS: Add Manual Diff / Slide Review NO; Basophils Absolute Auto 0 /uL (0-100); Basophils Percent Auto 0.5 % (0-2); Eosinophils Absolute Auto 100 /uL (0-450); Eosinophils Percent Auto 0.8 % (2-4); Hematocrit 38.5 % (36-46); Hemoglobin 12.8 g/dL (12.0-16.0); Lymphocytes Absolute Auto 1300 /uL (1100-4500); Lymphocytes Percent Auto 19.5 % (25-40); Mean Corpuscular HGB Conc 33.3 % (30-36); Mean Corpuscular Hemoglobin 32.1 PG (26-34); Mean Corpuscular Volume 96.3 fL (80-100); Monocytes Absolute Auto 500 /uL (0-900); Monocytes Percent Auto 7.8 % (3-14); Neutrophils Absolute Auto 4600 /uL (1500-7000); Neutrophils Percent Auto 71.4 % (50-75); Platelet Count 203 X10^3/uL (150-400); Red Blood Cell Count 3.99 X10^6/uL (4.0-5.2); Red Cell Distribution Width 13.2 % (11.6-14.8); White Blood Cell Count 6.5 X10^3/uL (4.5-11.0)
--- NOTE | 2024-07-25 19:47 | PC.NURSE ---
Pt endorses she was placed on a heart monitor on 07/20/24 as her primary physician heard something funny in my heart, so he wanted me to wear this heart monitor. Pt denies any cardiac diagnoses.
[2024-07-25 20:00] LABS: Alanine Aminotransferase 22 IU/L (<35); Albumin 4.2 g/dL (3.5-5.0); Albumin Globulin Ratio 1.3 (1.0-2.8); Alkaline Phosphatase 60 U/L (38-126); Aspartate Aminotransferase 28 IU/L (14-36); BUN Creatinine Ratio 18.2 (6-22); Bilirubin Total 0.5 mg/dL (0.2-1.3); Blood Urea Nitrogen 18 mg/dL (7-17); Calcium 9.8 mg/dL (8.4-10.2); Carbon Dioxide 30 mmol/L (22-32); Chloride 103 mmol/L (98-107); Creatine Kinase 51 U/L (30-135); Estimated Glomerular Filt Rate 58 mL/min (>60); Globulin 3.3 g/dL (1.7-4.1); Glucose 109 mg/dL (80-110); HEMOLYSIS < 15 (0-50); Lipase 78 U/L (23-300); Magnesium 1.9 mg/dL (1.6-2.3); Potassium 4.5 mmol/L (3.4-5.1); Sodium 136 mmol/L (137-145); Total Protein 7.5 g/dL (6.3-8.2)
[2024-07-25 20:11] LABS: Troponin I < 0.012 ng/mL (0.01-0.034)
--- NOTE | 2024-07-25 21:06 | ED.ARRPALP ---
HPI - Arrhythmia/Palpitations General Chief Complaint: Arrhythmia/Palpitations Stated Complaint: left arm heaviness, worse w activity Time Seen by Provider: 07/25/24 18:42 Source: patient Mode of arrival: Wheelchair History of Present Illness HPI narrative: Patient was a 79-year-old female who is here for evaluation of was initially described as left arm heaviness. She describes it as a ?pulsing? and tingling sensation to her left. She states that it happens occasionally. Is unsure as to how long it lasts when it does occur. No skin changes. No upper arm pain. No chest pain. No neck pain. No shortness of breath. Reports no activities which would potentially have caused muscle soreness. No trauma to the area. She was wearing a ZIO patch prescribed by her primary provider. Related Data Home Medications Medication Instructions Recorded Confirmed ASPIRIN (Aspirin) 81 mg PO Q DAY ##0 08/07/11 07/11/24 ferrous sulfate 325 mg (65 mg 325 mg PO DAILY 03/31/22 07/11/24 iron) tablet Previous Rx's Medication Instructions Recorded calcium carbonate (Calcium 600) 600 mg PO BID #180 tabs 03/28/20 multivitamin 1 tab PO DAILY #90 tabs 03/28/20 levothyroxine 112 mcg tablet 112 mcg PO DAILY #90 tabs 07/11/24 lovastatin 40 mg tablet See Rx Instructions .Route 07/11/24 .COMPLEX #180 tabs Allergies Allergy/AdvReac Type Severity Reaction Status Date / Time prednisone Allergy Intermediate rash, ring Verified 07/25/24 19:04 around ankles Review of Systems Review of Systems ROS Unobtainable: All systems reviewed & are unremarkable except as noted in HPI and below Patient History Medical History Dyspnea on exertion Social History Smoking Status: Never smoker alcohol intake: current (2 glasses wine per week ) substance use type: does not use Smoking Status: Never smoker Exam Initial Vital Signs Initial Vital Signs: Vital Signs Temperature 97.8 F 07/25/24 18:38 Pulse Rate 93 H 07/25/24 18:38 Respiratory Rate 16 07/25/24 18:38 Blood Pressure 157/73 H 07/25/24 18:38 Pulse Oximetry 95 07/25/24 18:38 Oxygen Delivery Method Room Air 07/25/24 18:38 Const General: cooperative, comfortable and No ill appearing HENMT Head: normal to inspection and normocephalic Resp Effort & Inspection: normal respiratory effort Auscultation: clear to auscultation bilaterally Cardio Rate: regular rate Rhythm: regular rhythm Pulses: radial pulses present on the left GI Inspection: normal to inspection and non-distended Palpation: soft and No tender Back/Spine/Pelvis Cervical Spine: No cervical muscular tenderness and No cervical spinal tenderness Skin General: no rashes or lesions noted Neuro Sensory Exam: no sensory deficits noted Extrem General: normal to inspection and No capillary refill normal Other: Left wrist is unremarkable. Left elbows unremarkable. Left shoulder is unremarkable. She describes the pain on the radial aspect of the left proximal forearm. Course Orders Ordered: ED Orders 07/25/24 18:43 XR chest 1V Stat EKG-12 Lead Stat 07/25/24 19:39 Complete Blood Count AUTO DIFF Stat Comprehensive Metabolic Panel Stat Lipase Stat Magnesium Stat Troponin & CK Cardiac Panel Stat Vital Signs Vital signs: Vital Signs - 8 hr 07/25/24 18:38 07/25/24 18:48 07/25/24 18:49 Temperature 97.8 F Pulse Rate 93 H 86 88 Respiratory Rate 16 Blood Pressure 157/73 H Pulse Oximetry 95 95 94 Oxygen Delivery Method Room Air 07/25/24 18:49 07/25/24 19:00 07/25/24 19:00 Temperature Pulse Rate 74 Respiratory Rate Blood Pressure 141/84 H 153/97 H Pulse Oximetry 95 Oxygen Delivery Method 07/25/24 19:30 07/25/24 19:31 07/25/24 19:31 Temperature Pulse Rate 74 77 Respiratory Rate 19 Blood Pressure 123/89 Pulse Oximetry 95 95 Oxygen Delivery Method Room Air 07/25/24 20:00 07/25/24 20:01 07/25/24 20:01 Temperature Pulse Rate 67 67 Respiratory Rate 19 18 Blood Pressure 181/77 H Pulse Oximetry 96 97 Oxygen Delivery Method Room Air 07/25/24 20:30 07/25/24 20:31 07/25/24 20:31 Temperature Pulse Rate 68 70 Respiratory Rate 19 20 Blood Pressure 175/72 H Pulse Oximetry 98 97 Oxygen Delivery Method Room Air 07/25/24 20:44 07/25/24 20:44 07/25/24 21:00 Temperature Pulse Rate 72 76 Respiratory Rate 15 23 Blood Pressure 156/60 H Pulse Oximetry 96 97 Oxygen Delivery Method Room Air Room Air 07/25/24 21:30 07/25/24 21:37 07/25/24 21:37 Temperature Pulse Rate 66 69 Respiratory Rate 18 20 Blood Pressure 162/64 H Pulse Oximetry 96 98 Oxygen Delivery Method Room Air Room Air MDM - Arrhythmia/Palpitations Lab Data Attestation: I reviewed the patient's lab results. 07/25/24 19:39 07/25/24 19:39 Labs: Lab Results 07/25/24 Range/Units 19:39 WBC 6.5 (4.5-11.0) X10^3/uL RBC 3.99 L (4.0-5.2) X10^6/uL Hgb 12.8 (12.0-16.0) g/dL Hct 38.5 (36-46) % MCV 96.3 (80-100) fL MCH 32.1 (26-34) PG MCHC 33.3 (30-36) % RDW 13.2 (11.6-14.8) % Plt Count 203 (150-400) X10^3/uL Neut % (Auto) 71.4 (50-75) % Lymph % (Auto) 19.5 L (25-40) % [place] % (Auto) 7.8 (3-14) % Eos % (Auto) 0.8 L (2-4) % Baso % (Auto) 0.5 (0-2) % Neut # (Auto) 4600 (0092-4666) /uL Lymph # (Auto) 1300 (0297-6683) /uL [place] # (Auto) 500 (0-900) /uL Eos # (Auto) 100 (0-450) /uL Baso # (Auto) 0 (0-100) /uL Sodium 136 L (137-145) mmol/L Potassium 4.5 (3.4-5.1) mmol/L Chloride 103 (98-107) mmol/L Carbon Dioxide 30 (22-32) mmol/L BUN 18 H (7-17) mg/dL Creatinine 0.99 (0.52-1.04) mg/dL Estimated GFR 58 L (>60) mL/min BUN/Creatinine Ratio 18.2 (6-22) Glucose 109 (80-110) mg/dL Calcium 9.8 (8.4-10.2) mg/dL Magnesium 1.9 (1.6-2.3) mg/dL Total Bilirubin 0.5 (0.2-1.3) mg/dL AST 28 (14-36) IU/L ALT 22 (<35) IU/L Alkaline Phosphatase 60 (38-126) U/L Total Creatine Kinase 51 (30-135) U/L Troponin I < 0.012 (0.01-0.034) ng/mL Total Protein 7.5 (6.3-8.2) g/dL Albumin 4.2 (3.5-5.0) g/dL Globulin 3.3 (1.7-4.1) g/dL Albumin/Globulin Ratio 1.3 (1.0-2.8) Lipase 78 (23-300) U/L Imaging Data Chest x-ray: Radiologist's Impresson: PROCEDURE: XR CHEST 1V INDICATIONS: Chest pain TECHNIQUE: One view of the chest was acquired. COMPARISON: [facility], , XR CHEST 2V, 12/24/2021, 15:24. FINDINGS: Surgical changes and devices: Battery like device projects over the left lateral chest. Lungs and pleura: Mild diffuse thickening of the interstitial markings. No focal consolidation, effusion, or pneumothorax. Mediastinum: Mild cardiomegaly. Normal aortic contour. No central venous congestion. Bones and chest wall: No suspicious bony lesions. Overlying soft tissues appear unremarkable. IMPRESSION: Diffuse interstitial thickening may indicate chronic pulmonary edema or interstitial pneumonitis. Mild cardiomegaly, slightly increased compared to the prior exam. ECG Data Attestation: I personally reviewed and interpreted this ECG as follows: Interpretation: Sinus Normal axis Normal QRS Nonspecific ST T wave changes MDM Narrative Medical decision making narrative: Workup here in the emergency department is unremarkable. Low suspicion that this is ACS. She was a very focal area of tenderness what she describes as a pulsating in the proximal left forearm. This would be over the muscles associated with the hand. EKGs unremarkable. No skin changes over the area. I also have low suspicion that this is cervical radiculopathy. Advised that she contact her primary care doctor for follow-up. She expressed understanding and agreement with the. Discharge Plan Departure Patient Disposition: Home Clinical Impression: Arm pain, left Activity Restrictions/Additional Instructions: Continue to take all of your medications as directed. I recommend you contact your primary care doctor for a follow-up. Return to the emergency department for new or worsening symptoms. Prescriptions: No Action ASPIRIN (Aspirin) 81 mg PO Q DAY Qty: 0 multivitamin Tablet 1 tab PO DAILY Qty: 90 0RF calcium carbonate [Calcium 600] 600 mg calcium (1,500 mg) tablet 600 mg PO BID Qty: 180 0RF levothyroxine 112 mcg tablet 112 mcg PO DAILY Qty: 90 3RF lovastatin 40 mg tablet See Rx Instructions .ROUTE .COMPLEX Qty: 180 3RF Dose Instruction: TAKE 2 TABLETS BY MOUTH AT BEDTIME Rx Instructions: TAKE 2 TABLETS BY MOUTH AT BEDTIME ferrous sulfate 325 mg (65 mg iron) tablet 325 mg PO DAILY Referrals: Chang Holbrook MD [Primary Care Provider] - Stand Alone Forms: Patient Portal/API/Survey
== END 2024-07-25 21:48 | disposition home or self-care (01) ==
PROVIDERS: Emergency Provider Emergency Medicine; PCP Family Medicine
DX: M79.602 Pain in left arm (principal); R07.9 Chest pain, unspecified; R00.2 Palpitations
CPT/HCPCS: 36415; 71045; 80053; 82550; 83690; 83735; 84484; 85025; 93005; 99283; 99284

== ENCOUNTER → 2024-08-01 15:31 | Outpatient (CLI) | payer MEDICARE, SELFPAY ==
[2024-08-01 16:07] LABS: Add Manual Diff / Slide Review NO; Basophils Absolute Auto 0 /uL (0-100); Basophils Percent Auto 0.5 % (0-2); Eosinophils Absolute Auto 100 /uL (0-450); Eosinophils Percent Auto 2.1 % (2-4); Hematocrit 36.8 % (36-46); Hemoglobin 12.4 g/dL (12.0-16.0); Lymphocytes Absolute Auto 1600 /uL (1100-4500); Lymphocytes Percent Auto 33.3 % (25-40); Mean Corpuscular HGB Conc 33.7 % (30-36); Mean Corpuscular Hemoglobin 32.4 PG (26-34); Mean Corpuscular Volume 95.9 fL (80-100); Monocytes Absolute Auto 400 /uL (0-900); Neutrophils Absolute Auto 2600 /uL (1500-7000); Neutrophils Percent Auto 55.1 % (50-75); Platelet Count 187 X10^3/uL (150-400); Red Blood Cell Count 3.83 X10^6/uL (4.0-5.2); Red Cell Distribution Width 13.2 % (11.6-14.8); White Blood Cell Count 4.7 X10^3/uL (4.5-11.0)
[2024-08-01 16:29] LABS: Alanine Aminotransferase 23 IU/L (<35); Albumin 3.9 g/dL (3.5-5.0); Albumin Globulin Ratio 1.3 (1.0-2.8); Alkaline Phosphatase 56 U/L (38-126); Aspartate Aminotransferase 30 IU/L (14-36); BUN Creatinine Ratio 17.9 (6-22); Bilirubin Total 0.6 mg/dL (0.2-1.3); Blood Urea Nitrogen 17 mg/dL (7-17); Calcium 9.1 mg/dL (8.4-10.2); Carbon Dioxide 30 mmol/L (22-32); Chloride 104 mmol/L (98-107); Cholesterol 185 mg/dL (140-199); Estimated Glomerular Filt Rate > 60 mL/min (>60); Globulin 3.1 g/dL (1.7-4.1); Glucose 101 mg/dL (80-110); HDL Cholesterol 69 mg/dL (40-60); HEMOLYSIS < 15 (0-50); LDL Cholesterol Calculated 99 mg/dL (<100); Potassium 4.3 mmol/L (3.4-5.1); Sodium 137 mmol/L (137-145); Triglycerides 84 mg/dL (35-150)
[2024-08-01 16:38] LABS: Creatinine Urine Random 104.45 mg/dL
[2024-08-01 16:46] LABS: Microalbumin Urine Random 1.9 mg/dL (0-1.6)
[2024-08-01 16:58] LABS: TSH w/ Reflex to FT4 5.54 uIU/mL (0.47-4.68)
[2024-08-01 17:45] LABS: Free T4, Direct Thyroxine 1.05 ng/dL (0.78-2.19)
[2024-08-03 03:35] LABS: Apolipoprotein B 73 mg/dL (<90)
== END ==
PROVIDERS: PCP Family Medicine; Referring Provider Family Medicine; Visit Provider Family Medicine
DX: Z00.00 Encounter for general adult medical examination without abnormal findings (principal); E03.9 Hypothyroidism, unspecified; E78.2 Mixed hyperlipidemia; M79.672 Pain in left foot; R00.2 Palpitations; Z78.0 Asymptomatic menopausal state
CPT/HCPCS: 36415; 80053; 80061; 82043; 82172; 82570; 84439; 84443; 85025

== ENCOUNTER → 2025-01-20 15:52 | Outpatient (CLI) | payer MEDICARE, SELFPAY ==
--- NOTE | 2025-01-20 15:53 | DI.MG.S_ITS ---
MM screening mammo BI: 01/20/2025. BI-RADS: 1 CLINICAL: 79-year old female for bilateral screening mammogram. Tyrer-Cuzick lifetime risk of 2.3%. No personal or first-degree family history of breast cancer. PRIOR EXAMS 10/05/2023, 09/10/2022, 07/03/2021, 05/15/2020. MAMMOGRAPHY TECHNIQUE: 2D and 3D (tomosynthesis) digital mammographic views obtained, with additional images as needed for full coverage. Current study was also evaluated with a Computer Aided Detection (CAD) system. DENSITY B. There are scattered areas of fibroglandular density. MAMMOGRAPHY FINDINGS Bilateral: No suspicious mass, asymmetry, microcalcification, or other abnormality seen. No significant change from comparison. IMPRESSION: * No evidence of malignancy. RECOMMENDATIONS Bilateral * Annual screening mammography. OVERALL ASSESSMENT CATEGORY BI-RADS-1: Negative. The [employer] recommends annual screening mammography beginning at age 40 for women with average risk of breast cancer. ELECTRONICALLY SIGNED: Cindy Gomez M.D. on 01/22/2025 at 01:27:13 AM PT Interpreting Station ID: [id number]
== END ==
PROVIDERS: PCP Family Medicine; Referring Provider Family Medicine; Visit Provider Family Medicine
DX: Z12.31 Encounter for screening mammogram for malignant neoplasm of breast (principal)
CPT/HCPCS: 77063; 77067

== ENCOUNTER 2025-01-27 20:34 | Emergency (ER) | payer MEDICARE, SELFPAY ==
[2025-01-27] VITALS (18 sets, daily range): BP systolic 104–183; BP diastolic 62–86; PULSE 70–95; RESP 13–44; TEMP 37.1; O2SAT 93–97; BMI 29.7
--- NOTE | 2025-01-27 20:39 | DI.RAD.S_ITS ---
PROCEDURE: XR CHEST 1V INDICATIONS: Chest Pain TECHNIQUE: One view of the chest was acquired. COMPARISON: [facility], CR, XR CHEST 1V, 07/25/2024, 19:07. FINDINGS: Surgical changes and devices: None. Lungs and pleura: Lungs are clear. No pleural effusions or pneumothorax. Mediastinum: Mediastinal contours appear normal. Heart size is normal. Bones and chest wall: No suspicious bony lesions. Overlying soft tissues appear unremarkable. IMPRESSION: No acute pulmonary process. Dictated by: Stella Hendrix M.D. on 01/27/2025 at 21:32 Approved by: Stella Hendrix M.D. on 01/27/2025 at 21:32
--- NOTE | 2025-01-27 20:39 | EKG_ITS ---
[address] [address] Test Date: 2025-01-27 Pat Name: Alicia Parsons Department: Room: Gender: Female Gm Mobile: IOANA BRODY : 1945 Requested By: Order Number: [id number] Reading MD: Hitesh Cavazos Measurements Intervals [place] Rate: 80 P: 71 [place]: 138 QRS: 32 QRSD: 94 T: 17 QT: 388 QTc: 447 Interpretive Statements Normal sinus rhythm Incomplete right bundle branch block Nonspecific T wave abnormality Electronically Signed On 01-30-2025 8:01:45 PDT by Hitesh Cavazos
--- NOTE | 2025-01-27 20:50 | ED_ITS ---
HPI - Chest Pain General Chief Complaint: Chest Pain Stated Complaint: Pain/Tightness in chest and neck Time Seen by Provider: 01/27/25 20:41 History of Present Illness HPI narrative: 79-year-old female hypothyroidism, hyperlipidemia presents with chest pain described as chest tightness at 7:00 p.m. tonight while watching TV across the chest into the left neck and shoulder. She did take some antacid thinking that it could be acid reflux heartburn but this does not relieve the pain. No known history of CAD and never had any stress test or cardiac catheterization in the past. Described as 6-01/19 does hurt to breathe. Other than what is stated 14 point review of system is negative. Related Data Home Medications ?Medication ?Instructions ?Recorded ?Confirmed ASPIRIN (Aspirin) 81 mg PO Q DAY ##0 08/07/11 07/11/24 ferrous sulfate 325 mg (65 mg 325 mg PO DAILY 03/31/22 07/11/24 iron) tablet Previous Rx's ?Medication ?Instructions ?Recorded calcium carbonate (Calcium 600) 600 mg PO BID #180 tab s 03/28/20 multivitamin 1 tab PO DAILY #90 tabs 03/13 12/30 levothyroxine 112 mcg tablet 112 mcg PO DAILY #90 tabs 07/11/24 lovastatin 40 mg tablet See Rx Instructions .Route 1 .COMPLEX #180 tabs Allergies Allergy/AdvReac Type Severity Reaction Status Date / Time prednisone Allergy Intermediate rash, ring Verified 01/27/25 20:46 around ankles Review of Systems Review of Systems ROS Unobtainable: All systems reviewed & are unremarkable except as noted in HPI and below Patient History Medical History Dyspnea on exertion Social History Smoking Status: Unknown if ever smoked alcohol intake: current (2 glasses wine per week ) substance use type: does not use Exam Narrative Exam Narrative: GENERAL: [79] year old patient appears stated age. Well-developed patient, in mild distress. HEAD: Atraumatic. Normocephalic. EYES: Pupils equal round and reactive. Extraocular motions intact. No scleral icterus. No injection or drainage. ENT: Nose without bleeding, purulent drainage. Throat without erythema, tonsillar hypertrophy or exudate. Airway patent. NECK: Trachea midline. Non tender CARDIOVASCULAR: Regular rate and rhythm without murmurs, gallops, or rubs. Midsternal region tender to palpate completely reproduces the pain RESPIRATORY: Clear to auscultation. Breath sounds equal bilaterally. No wheezes, rales, or rhonchi. GASTROINTESTINAL: Abdomen soft, non-tender, nondistended. EXTREMITIES: No edema or joint tenderness. BACK: Nontender without deformity or crepitance. No flank tenderness. NEURO: AOx3. SKIN: No rash or erythema of visible areas Initial Vital Signs Initial Vital Signs: Vital Signs Pulse Rate 95 H 01/27/25 20:41 Pulse Oximetry 94 01/27/25 20:41 Scores HEART Score Heart Score history: Slightly Suspicious Heart Score EKG: Normal Heart Score Age: 45-64 years old Heart Score risk factors: 1-2 risk factors Heart Score troponin: < or = to normal limit Heart Score Total: 2 Course Orders Ordered: ED Orders 01/27/25 20:39 XR chest 1V Stat EKG-12 Lead Stat 01/27/25 20:48 Complete Blood Count AUTO DIFF Stat Comprehensive Metabolic Panel Stat Lipase Stat Magnesium Stat NT-proBNP (BNP-Adult 18+) Stat PTT Partial Thromboplastin Russell Stat Prothrombin Time INR Stat Troponin & CK Cardiac Panel Stat 01/27/25 22:49 Trop I [Troponin I] Stat Discontinued Medications Aspirin (Aspirin 81 Mg Chew Tab) 324 mg PO NOW ONE Stop: 01/27/25 20:40 Last Admin: 01/27/25 20:54 Dose: 324 mg Documented By: SIERRA Morphine Sulfate (Morphine 4 Mg/Ml Inj) 4 mg IV NOW ONE Stop: 01/27/25 21:57 Last Admin: 01/27/25 21:59 Dose: 4 mg Documented By: SIERRA Nitroglycerin (Nitroglycerin 0.4 Mg Sl Tab) 0.4 mg SL NOW ONE Stop: 01/27/25 20:56 Last Admin: 01/27/25 20:59 Dose: 0.4 mg Documented By: SIERRA Nitroglycerin (Nitroglycerin 0.4 Mg Sl Tab) 0.4 mg SL NOW ONE Stop: 01/27/25 21:57 Last Admin: 01/27/25 22:00 Dose: 0.4 mg Documented By: SIERRA Vital Signs Vital signs: Vital Signs - 8 hr 01/27/25 20:41 01/27/25 20:42 01/27/25 20:42 Temperature Pulse Rate 95 H 95 H Respiratory Rate Blood Pressure 154/86 H Pulse Oximetry 94 95 Oxygen Delivery Method 01/27/25 20:46 01/27/25 20:59 01/27/25 21:00 Temperature 98.8 F Pulse Rate 88 75 77 Respiratory Rate 17 44 H Blood Pressure 154/86 H 154/86 H Pulse Oximetry 95 97 Oxygen Delivery Method Room Air 01/27/25 21:01 01/27/25 21:01 01/27/25 21:06 Temperature Pulse Rate 77 Respiratory Rate 34 H Blood Pressure 167/80 H 104/64 Pulse Oximetry 95 Oxygen Delivery Method 01/27/25 21:06 01/27/25 21:15 01/27/25 21:15 Temperature Pulse Rate 84 76 Respiratory Rate 41 H 38 H Blood Pressure 117/64 Pulse Oximetry 96 95 Oxygen Delivery Method 01/27/25 21:30 01/27/25 22:00 Temperature Pulse Rate 75 83 Respiratory Rate 43 H Blood Pressure 147/86 H Pulse Oximetry 94 Oxygen Delivery Method MDM - Chest Pain Lab Data 01/27/25 20:48 01/27/25 20:48 Labs: Lab Results 01/27/25 Range/Units 20:48 WBC 8.1 (4.5-11.0) X10^3/uL RBC 3.97 L (4.0-5.2) X10^6/uL Hgb 13.1 (12.0-16.0) g/dL Hct 38.7 (36-46) % MCV 97.3 (80-100) fL MCH 33.0 (26-34) PG MCHC 33.9 (30-36) % RDW 13.2 (11.6-14.8) % Plt Count 181 (150-400) X10^3/uL Neut % (Auto) 69.2 (50-75) % Lymph % (Auto) 21.8 L (25-40) % [place] % (Auto) 8.0 (3-14) % Eos % (Auto) 0.6 L (2-4) % Baso % (Auto) 0.4 (0-2) % Neut # (Auto) 5600 (7738-0823) /uL Lymph # (Auto) 1800 (2670-7747) /uL [place] # (Auto) 600 (0-900) /uL Eos # (Auto) 0 (0-450) /uL Baso # (Auto) 0 (0-100) /uL PT 10.8 (9.4-12.5) SECONDS INR 1.0 (0.9-1.3) APTT 30 (25.1-36.5) SECONDS Sodium 140 (137-145) mmol/L Potassium 3.9 (3.4-5.1) mmol/L Chloride 104 (98-107) mmol/L Carbon Dioxide 29 (22-32) mmol/L BUN 13 (7-17) mg/dL Creatinine 0.90 (0.52-1.04) mg/dL Estimated GFR > 60 (>60) mL/min BUN/Creatinine Ratio 14.4 (6-22) Glucose 110 H (70-99) mg/dL Calcium 9.2 (8.4-10.2) mg/dL Magnesium 1.9 (1.6-2.3) mg/dL Total Bilirubin 0.6 (0.2-1.3) mg/dL AST 27 (14-36) IU/L ALT 20 (<35) IU/L Alkaline Phosphatase 65 (38-126) U/L Total Creatine Kinase 49 (30-135) U/L Troponin I < 0.012 (0.01-0.034) ng/mL NT-Pro-B Natriuret Pep 903 H (<450) pg/mL Total Protein 7.8 (6.3-8.2) g/dL Albumin 4.3 (3.5-5.0) g/dL Globulin 3.5 (1.7-4.1) g/dL Albumin/Globulin Ratio 1.2 (1.0-2.8) Lipase 72 (23-300) U/L Imaging Data Chest x-ray: Radiologist's Impression: [address] [address] XRay Report Signed Patient: Alicia Parsons MR#: [id number] : 1945 Acct:[id number] Age/Sex: 79 / F Date of Service: 01/27/25 Loc: ED Accession Number: [id number] Procedure: XR chest 1V Ordering Provider: Saez,Dwayne C. D.O. PROCEDURE: XR CHEST 1V INDICATIONS: Chest Pain TECHNIQUE: One view of the chest was acquired. COMPARISON: [facility], CR, XR CHEST 1V, 07/25/2024, 19:07. FINDINGS: Surgical changes and devices: None. Lungs and pleura: Lungs are clear. No pleural effusions or pneumothorax. Mediastinum: Mediastinal contours appear normal. Heart size is normal. Bones and chest wall: No suspicious bony lesions. Overlying soft tissues appear unremarkable. IMPRESSION: No acute pulmonary process. ECG Data Interpretation: NSR HR 80 KS 138 QRS [address]-t wave change Unchanged from 07/25/24 MDM Narrative Medical decision making narrative: All lab work, vital signs, nurse triage note, medication list, previous ER visits, and all imaging studies reviewed. Heart score 2. Differential diagnosis STEMI NSTEMI unstable angina chest wall pain GERD anxiety. DC home to follow up with PCP on Thursday or Thursday for continuity of care. Discharge Plan Departure Patient Disposition: Home Clinical Impression: Chest pain Instructions: DI for Chest Pain Activity Restrictions/Additional Instructions: Return with new or worsening symptoms. Follow up with PCP on Thursday or Thursday for continuity of care. Prescriptions: No Action ASPIRIN (Aspirin) 81 mg PO Q DAY Qty: 0 multivitamin Tablet 1 tab PO DAILY Qty: 90 0RF calcium carbonate [Calcium 600] 600 mg calcium (1,500 mg) tablet 600 mg PO BID Qty: 180 0RF levothyroxine 112 mcg tablet 112 mcg PO DAILY Qty: 90 3RF lovastatin 40 mg tablet See Rx Instructions .ROUTE .COMPLEX Qty: 180 3RF Dose Instruction: TAKE 2 TABLETS BY MOUTH AT BEDTIME Rx Instructions: TAKE 2 TABLETS BY MOUTH AT BEDTIME ferrous sulfate 325 mg (65 mg iron) tablet 325 mg PO DAILY Referrals: Chang Holbrook MD [Primary Care Provider, Family Practice] Stand Alone Forms: Patient Portal/API
[2025-01-27] MEDS: ASPIRIN 81 MG CHEW TAB 324 MG PO (20:54)
[2025-01-27 20:59] LABS: Add Manual Diff / Slide Review NO; Hematocrit 38.7 % (36-46); Hemoglobin 13.1 g/dL (12.0-16.0); Lymphocytes Absolute Auto 1800 /uL (1100-4500); Mean Corpuscular HGB Conc 33.9 % (30-36); Mean Corpuscular Hemoglobin 33.0 PG (26-34); Mean Corpuscular Volume 97.3 fL (80-100); Platelet Count 181 X10^3/uL (150-400)
[2025-01-27] MEDS: NITROGLYCERIN 0.4 MG SL TAB SL ×2 (20:59→22:00)
[2025-01-27 21:08] LABS: INR 1.0 (0.9-1.3); Prothrombin Time 10.8 SECONDS (9.4-12.5)
[2025-01-27 21:11] LABS: PTT Partial Thromboplastin Tim 30 SECONDS (25.1-36.5)
[2025-01-27 21:15] LABS: Alanine Aminotransferase 20 IU/L (<35); Albumin 4.3 g/dL (3.5-5.0); Albumin Globulin Ratio 1.2 (1.0-2.8); Alkaline Phosphatase 65 U/L (38-126); Blood Urea Nitrogen 13 mg/dL (7-17); Calcium 9.2 mg/dL (8.4-10.2); Carbon Dioxide 29 mmol/L (22-32); Chloride 104 mmol/L (98-107); Creatine Kinase 49 U/L (30-135); Estimated Glomerular Filt Rate > 60 mL/min (>60); Globulin 3.5 g/dL (1.7-4.1); Glucose 110 mg/dL (70-99); HEMOLYSIS < 15 (0-50); Lipase 72 U/L (23-300); Magnesium 1.9 mg/dL (1.6-2.3); Potassium 3.9 mmol/L (3.4-5.1); Sodium 140 mmol/L (137-145); Total Protein 7.8 g/dL (6.3-8.2)
[2025-01-27 21:27] LABS: NT-proBNP (BNP-Adult 18+) 903 pg/mL (<450); Troponin I < 0.012 ng/mL (0.01-0.034)
[2025-01-27] MEDS: MORPHINE 4 MG/ML INJ IV (21:59)
[2025-01-27 23:19] LABS: Troponin I < 0.012 ng/mL (0.01-0.034)
== END 2025-01-27 23:59 | disposition home or self-care (01) ==
PROVIDERS: Emergency Provider Family Medicine; PCP Family Medicine
DX: R07.9 Chest pain, unspecified (principal); M54.2 Cervicalgia; M25.512 Pain in left shoulder
CPT/HCPCS: 36415; 71045; 80053; 82550; 83690; 83735; 83880; 84484; 85025; 85610; 85730; 93005; 96374; 99284; J2270

== ENCOUNTER → 2025-02-02 17:11 | Outpatient (CLI) | payer MEDICARE, SELFPAY ==
[2025-02-02 19:17] LABS: Ferritin 584 ng/mL (11-264)
[2025-02-02 20:46] LABS: HEMOLYSIS < 15 (0-50); Iron 72 ug/dL (37-170)
[2025-02-02 21:01] LABS: Percent Iron Saturation 27 % (15-50); Total Iron Binding Capacity 263 ug/dL (265-497)
[2025-02-02 21:18] LABS: TSH w/ Reflex to FT4 2.13 uIU/mL (0.47-4.68)
[2025-02-02 23:14] LABS: Transferrin 218 mg/dL (206-381)
== END ==
PROVIDERS: PCP Family Medicine; Referring Provider Physician Assistant; Visit Provider Physician Assistant
DX: D64.9 Anemia, unspecified (principal); E03.9 Hypothyroidism, unspecified
CPT/HCPCS: 36415; 82728; 83540; 83550; 84443

== ENCOUNTER → 2025-02-09 15:52 | Outpatient (CLI) | payer MEDICARE, SELFPAY ==
--- NOTE | 2025-02-09 15:54 | DI.ECHO.S_ITS ---
[facility] +---------+ Hospital : : [address] : : [place] : : [id number] : : Phone: [phone] Echocardiogram Report + + :Name: TORI TRAYLOR Study Date: 02/09/2025 Height: 68 in : :Hospital ReadingLocation: Weight: 200 lb : : Gender: Female BSA: 2.0 m2 : :: 1945 Age: 79 yrs BP: 164/87 mmHg: :Reason For Study: CHEST PAIN, DYPSNEA ON EXERTION : :Ordering Physician: YANETH, : :LIBAN Fiore Performed By: Jorge Alberto Sorenson : :Referring: LIBAN WOLFE : + + Interpretation Summary Normal biventricular size and systolic function. LVEF is 55 to 60%. Normal atrial sizes. No significant valvular pathology is noted. Other findings as below. Procedure: A two-dimensional transthoracic echocardiogram with color flow and Doppler was performed. The study quality was technically good. There is no prior echocardiogram noted for this patient. The patient was in normal sinus rhythm during the exam. Left Ventricle: The left ventricle is normal in size. Left ventricular wall thickness is mildly increased. There is no ventricular septal defect visualized. The ejection fraction is estimated to be 55-60%. There are no focal wall motion abnormalities. Diastolic parameters suggest probable normal left ventricular diastolic function and normal filling pressures. Right Ventricle: The right ventricle is grossly normal size. The right ventricular systolic function is normal. Atria: The left atrial size is normal. The right atrium grossly appears normal in size. There is no Doppler evidence for an interatrial shunt. Mitral Valve: The mitral valve leaflets are slightly calcified. There is trace mitral regurgitation. Aortic Valve: The aortic valve is trileaflet. The aortic valve opens well. No aortic regurgitation is present. Tricuspid Valve: No tricuspid regurgitation. Pulmonic Valve: The pulmonic valve is not well seen, but is grossly normal. There is trace pulmonic regurgitation. Great Vessels: The aortic root is normal size. The dimensions of the ascending aorta are normal. The pulmonary artery is normal size. The IVC is of normal diameter and collapses greater than 50% with a sniff. This suggests a low right atrial pressure of 3 mm Hg. Pericardium/ Pleura There is a trivial pericardial effusion noted. There is no pleural effusion. MMode/2D Measurements & Calculations LVIDd: 4.6 cm LVOT diam: 1.8 cm LVIDs: 3.3 cm Ao root diam: 3.0 cm FS: 27.4 % asc Aorta Diam: 3.2 cm EPSS: 0.61 cm Ao Arch Diam (Prox Trans): 1.7 cm IVSd: 1.1 cm LVPWd: 1.1 cm LV [place]. diameter/BSA (cm/m^2): 2.2 LV sys. diameter/BSA (cm/m^2): 1.6 LA A2 area: 22.4 cm2 IVC diam: 1.9 cm LA A4 area: 18.9 cm2 LA length (vol): 5.4 cm LA vol: 66.0 ml LA vol index: 32.3 ml/m2 TAPSE: 2.3 cm Doppler Measurements & Calculations Ao V2 max: 133.4 cm/sec LVOT Max Shawn: 93.7 cm/sec Ao V2 mean: 92.0 cm/sec LV V1 max P.5 mmHg Ao max P.1 mmHg LV V1 VTI: 21.2 cm Ao mean P.8 mmHg TARYN(I,D): 2.1 cm2 Ao V2 VTI: 27.0 cm TARYN(V,D): 1.9 cm2 sev ratio: 0.79 TARYN indexed to BSA (cm^2/m^2): 1.0 MV E max shawn: 52.1 cm/sec PA V2 max: 86.7 cm/sec MV A max shawn: 48.8 cm/sec PA V2 mean: 58.4 cm/sec MV E/A: 1.1 PA mean P.5 mmHg Med Peak E' Shawn: 4.3 cm/sec PA pr(Accel): 48.2 mmHg E/E' med: 12.0 Lat Peak E' Shawn: 7.3 cm/sec E/E' lat: 7.1 E/e' average: 9.5 MV dec time: 0.18 sec SV(SAVANNAH): 56.9 ml Reading Physician:02:55 PM
== END ==
LOC: ECHO 15:53
PROVIDERS: PCP Family Medicine; Referring Provider Physician Assistant; Visit Provider Physician Assistant
DX: R07.9 Chest pain, unspecified (principal); R06.00 Dyspnea, unspecified
CPT/HCPCS: 93306